=== PATIENT | male | born 1985 | race Caucasian/White ===

== ENCOUNTER 2019-02-14 18:11 | Emergency (ER) | payer OTHER ==
[~2019-02-14] VITALS: Ht 180.3 cm; Wt 79.4 kg
== END 2019-02-14 19:30 | disposition home or self-care (01) ==
LOC: ER 18:11
DX: S93.401A Sprain of unspecified ligament of right ankle, initial encounter (principal); X50.9XXA Other and unspecified overexertion or strenuous movements or postures, initial encounter; Z88.8 Allergy status to other drugs, medicaments and biological substances
CPT/HCPCS: 73610; 99283-25

== ENCOUNTER 2020-01-03 04:54 | Emergency (ER) | payer OTHER ==
[~2020-01-03] VITALS: Ht 180.3 cm; Wt 83.9 kg
== END 2020-01-03 06:21 | disposition home or self-care (01) ==
LOC: ER 04:54
DX: M54.2 Cervicalgia (principal); Z88.8 Allergy status to other drugs, medicaments and biological substances; V43.52XA Car driver injured in collision with other type car in traffic accident, initial encounter
CPT/HCPCS: 70450; 71046; 72125; 99284-25; A9270; A9270-GY

== ENCOUNTER → 2020-02-20 | Outpatient (CLI) | payer OTHER | END | disposition home or self-care (01) | LOC: LAB SHORT 17:33 → LAB EV 17:33 | DX: R31.9 Hematuria, unspecified (principal) | CPT/HCPCS: 87086 ==

== ENCOUNTER → 2022-10-15 | Outpatient (CLI) | payer OTHER ==
[2022-10-15 15:42] LABS: Cholesterol 214 mg/dL (50-200); HDL Cholesterol 71 mg/dL (>39); LDL/HDL RATIO 1.7; Low Density Lipoprotein Chol 119 mg/dL (<110); Triglycerides 119 mg/dL (30-140); Very Low Density Lipoprot Chol 23 mg/dL (6-28)
== END | disposition home or self-care (01) ==
LOC: LAB SHORT 15:29
PROVIDERS: Chiropractor
DX: E66.3 Overweight (principal)
CPT/HCPCS: 80061; 83036